=== PATIENT | female | born 1945 | race Caucasian/White ===

== ENCOUNTER 2016-12-14 01:31 | Inpatient (IN) | payer MEDICARE, OTHER ==
[~2016-12-14 01:31] MED LIST: ATIVAN1 M2 PO; BABY ASPIRIN81 MG PO; CALCIUM600 MG PO; CENTRUM SILVER1 TA PO; CO ENZYME Q PO; FISH OIL 1,0001 EAC2 PO; FOLIC ACID PO; GABAPENTIN100 MG PO; HYDROCHLOROTH12.5 M2; METHOTREXATE2.5 MG PO; QUINAPRIL20 MG PO; REMICADE100 MG IV; VITAMIN C500 M3 PO; VITAMIN D1000 UNI1 PO
[2016-12-14 02:09] LABS: BASO % 0.3 % (0-2); EOS % 2.1 % (0-7); EOSINOPHIL ABSOLUTE COUNT 0.1 tho/cmm (0.0-0.7); HCT-HEMATOCRIT 36.4 % (34.0-49.0); IMMATURE GRANULOCYTES ABSOLUTE 0.01 tho/cmm (0-0.03); IMMATURE GRANULOCYTES PERCENT 0.1 % (0-0.3); LYMPH % 35.3 % (20-45); LYMPH ABSOLUTE COUNT 2.4 tho/cmm (0.8-4.5); MCH (MEAN CORPUSCULAR HGB) 31.7 pg (28.0-32.0); MEAN PLATELET VOLUME 10.8 cmc (9.4-12.4); MONO % 7.4 % (0-12); MONOCYTE ABSOLUTE COUNT 0.5 tho/cmm (0.0-1.2); NEUTROPHIL ABSOLUTE COUNT 3.7 tho/cmm (1.6-8.0); NEUTROPHIL-AUTOMATED 3.7 tho/cmm (1.6-8.0); NEUTROPHILS % 54.8 % (40-80); PLATELET COUNT 209 tho/cmm (150-450); PROTHROMBIN TIME 11.2 SECONDS (9.0-13.6); RED BLOOD COUNT 3.79 mil/cmm (4.00-5.20); RED CELL DISTRIBUTION WIDTH 14.8 % (12.4-16.4); WHITE BLOOD COUNT 6.8 tho/cmm (4.0-10.0)
[2016-12-14 02:27] LABS: ALB/GLOB RATIO 0.9 (0.8-2.0); ALBUMIN 3.3 g/dl (3.5-5.0); ALKALINE PHOSPHATASE 99 U/L (33-138); ALT/SGPT 30 U/L (12-78); ANION GAP 16 mmol/L (0-20); AST/SGOT 30 U/L (10-40); BILIRUBIN,TOTAL 0.4 mg/dl (0-1.5); BLOOD UREA NITROGEN 22 mg/dl (6-24); CALCIUM 8.5 mg/dl (8.5-10.5); CARBON DIOXIDE-VENOUS 21 mmol/L (22-32); CHLORIDE 103 mmol/l (96-110); CREATININE 1.12 mg/dl (0.50-1.10); GLUCOSE 326 mg/dL (70-110); POTASSIUM 3.5 mmol/L (3.7-5.1); SODIUM 136 mmol/L (135-145); eGFR VALUE FOR BLACK 56 mL/Min
[2016-12-14 02:32] LABS: TSH-THYROID STIMULATING HORM. 4.64 uIU/ml (0.40-3.80)
[2016-12-14 02:40] LABS: PROCALCITONIN <0.05 ng/ml (0.05-0.09)
[2016-12-14] MEDS ORDERED: FISH OIL 11000 MG/CA PO (04:12)
[2016-12-14] MEDS ORDERED: CALCIUM 600 +1 EA10 PO (04:13)
[2016-12-14] MEDS ORDERED: MULTI VITAMIN1 EAC2 PO (04:13)
[2016-12-14] MEDS ORDERED: FOLIC ACID1 M1 PO (04:14)
[2016-12-14] MEDS ORDERED: IBUPROFEN200 M2 PO (04:15)
[2016-12-14] MEDS ORDERED: VITAMIN B-12 PO (04:16)
[2016-12-14] MEDS ORDERED: ZOLEDRONIC5 MG/100 M IV (04:16)
[2016-12-14] MEDS ORDERED: ZOLOFT PO (04:16)
[2016-12-14] MEDS ORDERED: PROBIOTIC1 EAC6 PO (04:17)
[2016-12-14] MEDS ORDERED: SYNTHROID PO (04:17)
[2016-12-14] MEDS ORDERED: COQ10 PO (04:17)
[2016-12-14] MEDS ORDERED: BIOTIN PO (04:18)
[2016-12-14] MEDS ORDERED: ACID REDUCER PO (04:18)
[2016-12-14] MEDS ORDERED: FLAXSEED OIL1000 M3 PO (04:18)
[2016-12-14] MEDS ORDERED: LOSARTAN PO (04:23)
[2016-12-14] MEDS ORDERED: CLARITIN10 M8 PO (04:24)
[2016-12-14] MEDS ORDERED: NASACORT10.8 M1 (04:24)
[2016-12-14 07:04] LABS: ABG CO2 ARTERIAL 20 mmol/L (21-27); ARTERIAL BLD GAS O2 SATURATION 96 % (95-98); ARTERIAL BLOOD GAS PCO2 34 mmHg (32-45); ARTERIAL PO2 84 mmHg (70-100); BICARBONATE 19 mmol/L (21-28); BLOOD GAS BASE EXCESS -5 mM/L (-/+3); PH 7.36 Units (7.35-7.45)
[2016-12-14 17:51] LABS: URINE APPEARANCE HAZY; URINE BILIRUBIN NEGATIVE (NEG); URINE BLOOD SMALL (NEG); URINE COLOR YELLOW; URINE GLUCOSE (UA) NEGATIVE (NEG); URINE KETONE MODERATE (NEG); URINE LEUKOCYTE ESTERASE NEGATIVE (NEG); URINE NITRITE NEGATIVE (NEG); URINE PROTEIN SMALL (NEG)
[2016-12-14 17:59] LABS: URINE EPITHELIAL CELLS 0 /[HPF] (0-10)
[2016-12-14 18:22] LABS: BASO % 0.2 % (0-2); EOS % 0.2 % (0-7); HCT-HEMATOCRIT 32.4 % (34.0-49.0); HGB-HEMOGLOBIN 10.6 gm/dl (12.0-15.5); LYMPH % 19.6 % (20-45); LYMPH ABSOLUTE COUNT 1.1 tho/cmm (0.8-4.5); MCH (MEAN CORPUSCULAR HGB) 31.6 pg (28.0-32.0); MCHC MEAN CORPUSCULAR HGB CONC 32.7 % (32.0-36.0); MCV (MEAN CELL VOLUME) 96.7 fl (82.0-96.0); MEAN PLATELET VOLUME 10.8 cmc (9.4-12.4); MONO % 8.7 % (0-12); MONOCYTE ABSOLUTE COUNT 0.5 tho/cmm (0.0-1.2); NEUTROPHIL ABSOLUTE COUNT 3.9 tho/cmm (1.6-8.0); NEUTROPHIL-AUTOMATED 3.9 tho/cmm (1.6-8.0); NEUTROPHILS % 71.3 % (40-80); PLATELET COUNT 156 tho/cmm (150-450); RED BLOOD COUNT 3.35 mil/cmm (4.00-5.20); RED CELL DISTRIBUTION WIDTH 15.1 % (12.4-16.4); WHITE BLOOD COUNT 5.4 tho/cmm (4.0-10.0)
[2016-12-14 18:38] LABS: ANTI THROMBIN III 91 % (80-120); INR 1.2 INR (0.9-1.1)
[2016-12-14 18:41] LABS: ALKALINE PHOSPHATASE 91 U/L (33-138); ANION GAP 12 mmol/L (0-20); BILIRUBIN,TOTAL 0.4 mg/dl (0-1.5); BLOOD UREA NITROGEN 14 mg/dl (6-24); CALCIUM 6.9 mg/dl (8.5-10.5); CARBON DIOXIDE-VENOUS 20 mmol/L (22-32); CHLORIDE 114 mmol/l (96-110); CREATININE 0.69 mg/dl (0.50-1.10); POTASSIUM 3.1 mmol/L (3.7-5.1); SODIUM 143 mmol/L (135-145); eGFR VALUE FOR BLACK >90 mL/Min
[2016-12-14 18:43] LABS: PARTIAL THROMBOPLASTIN TIME 30 SECONDS (22-38)
[2016-12-14 18:44] LABS: FIBRINOGEN 48 mg/dl (200-400)
[2016-12-14 18:53] LABS: ALT/SGPT 102 U/L (12-78); AST/SGOT 96 U/L (10-40); GLUCOSE 153 mg/dL (70-110)
[2016-12-15 04:52] LABS: ABG CO2 ARTERIAL 19 mmol/L (21-27); ARTERIAL BLD GAS O2 SATURATION 97 % (95-98); ARTERIAL BLOOD GAS PCO2 33 mmHg (32-45); ARTERIAL PO2 84 mmHg (70-100); BICARBONATE 18 mmol/L (21-28); BLOOD GAS BASE EXCESS -6 mM/L (-/+3); PH 7.36 Units (7.35-7.45)
[2016-12-15 07:08] LABS: BASO % 0.3 % (0-2); EOS % 2.5 % (0-7); EOSINOPHIL ABSOLUTE COUNT 0.2 tho/cmm (0.0-0.7); HCT-HEMATOCRIT 31.6 % (34.0-49.0); HGB-HEMOGLOBIN 10.3 gm/dl (12.0-15.5); IMMATURE GRANULOCYTES ABSOLUTE 0.02 tho/cmm (0-0.03); IMMATURE GRANULOCYTES PERCENT 0.3 % (0-0.3); LYMPH % 26.2 % (20-45); LYMPH ABSOLUTE COUNT 1.8 tho/cmm (0.8-4.5); MCH (MEAN CORPUSCULAR HGB) 31.4 pg (28.0-32.0); MCHC MEAN CORPUSCULAR HGB CONC 32.6 % (32.0-36.0); MCV (MEAN CELL VOLUME) 96.3 fl (82.0-96.0); MEAN PLATELET VOLUME 10.3 cmc (9.4-12.4); MONO % 13.4 % (0-12); MONOCYTE ABSOLUTE COUNT 0.9 tho/cmm (0.0-1.2); NEUTROPHIL ABSOLUTE COUNT 3.9 tho/cmm (1.6-8.0); NEUTROPHIL-AUTOMATED 3.9 tho/cmm (1.6-8.0); NEUTROPHILS % 57.3 % (40-80); PLATELET COUNT 112 tho/cmm (150-450); RED BLOOD COUNT 3.28 mil/cmm (4.00-5.20); RED CELL DISTRIBUTION WIDTH 15.2 % (12.4-16.4); WHITE BLOOD COUNT 6.7 tho/cmm (4.0-10.0)
[2016-12-15 07:42] LABS: ALB/GLOB RATIO 1.1 (0.8-2.0); ALBUMIN 2.8 g/dl (3.5-5.0); ALKALINE PHOSPHATASE 87 U/L (33-138); ALT/SGPT 86 U/L (12-78); ANION GAP 14 mmol/L (0-20); AST/SGOT 66 U/L (10-40); BILIRUBIN,TOTAL 0.3 mg/dl (0-1.5); BLOOD UREA NITROGEN 11 mg/dl (6-24); CALCIUM 6.6 mg/dl (8.5-10.5); CARBON DIOXIDE-VENOUS 19 mmol/L (22-32); CHLORIDE 117 mmol/l (96-110); CREATININE 0.72 mg/dl (0.50-1.10); GLUCOSE 122 mg/dL (70-110); POTASSIUM 3.1 mmol/L (3.7-5.1); SODIUM 147 mmol/L (135-145); eGFR VALUE FOR BLACK >90 mL/Min
[2016-12-15 10:01] LABS: INR 1.2 INR (0.9-1.1); PROTHROMBIN TIME 13.7 SECONDS (9.0-13.6)
[2016-12-16 03:56] LABS: BASO % 0.5 % (0-2); EOS % 4.6 % (0-7); EOSINOPHIL ABSOLUTE COUNT 0.2 tho/cmm (0.0-0.7); HCT-HEMATOCRIT 29.2 % (34.0-49.0); HGB-HEMOGLOBIN 9.5 gm/dl (12.0-15.5); LYMPH % 25.9 % (20-45); MCH (MEAN CORPUSCULAR HGB) 31.6 pg (28.0-32.0); MCHC MEAN CORPUSCULAR HGB CONC 32.5 % (32.0-36.0); MEAN PLATELET VOLUME 10.7 cmc (9.4-12.4); MONO % 11.4 % (0-12); MONOCYTE ABSOLUTE COUNT 0.5 tho/cmm (0.0-1.2); NEUTROPHIL ABSOLUTE COUNT 2.3 tho/cmm (1.6-8.0); NEUTROPHIL-AUTOMATED 2.3 tho/cmm (1.6-8.0); NEUTROPHILS % 57.6 % (40-80); PLATELET COUNT 119 tho/cmm (150-450); RED BLOOD COUNT 3.01 mil/cmm (4.00-5.20); RED CELL DISTRIBUTION WIDTH 15.8 % (12.4-16.4); WHITE BLOOD COUNT 3.9 tho/cmm (4.0-10.0)
[2016-12-16 03:58] LABS: INR 1.1 INR (0.9-1.1); PROTHROMBIN TIME 12.3 SECONDS (9.0-13.6)
[2016-12-16 04:11] LABS: ALB/GLOB RATIO 0.9 (0.8-2.0); ALBUMIN 2.5 g/dl (3.5-5.0); ALKALINE PHOSPHATASE 89 U/L (33-138); ALT/SGPT 72 U/L (12-78); ANION GAP 11 mmol/L (0-20); AST/SGOT 45 U/L (10-40); BILIRUBIN,TOTAL 0.2 mg/dl (0-1.5); BLOOD UREA NITROGEN 7 mg/dl (6-24); CARBON DIOXIDE-VENOUS 22 mmol/L (22-32); CHLORIDE 117 mmol/l (96-110); CREATININE 0.65 mg/dl (0.50-1.10); GLUCOSE 96 mg/dL (70-110); POTASSIUM 3.2 mmol/L (3.7-5.1); SODIUM 147 mmol/L (135-145); eGFR VALUE FOR BLACK >90 mL/Min
[2016-12-16 04:52] LABS: CALCIUM 6.5 mg/dl (8.5-10.5)
[2016-12-16 05:34] LABS: ABG CO2 ARTERIAL 21 mmol/L (21-27); ARTERIAL BLD GAS O2 SATURATION 95 % (95-98); ARTERIAL BLOOD GAS PCO2 35 mmHg (32-45); ARTERIAL PO2 82 mmHg (70-100); BICARBONATE 20 mmol/L (21-28); BLOOD GAS BASE EXCESS -5 mM/L (-/+3); PH 7.37 Units (7.35-7.45)
[2016-12-16 07:23] LABS: PROTHROMBIN TIME 11.8 SECONDS (9.0-13.6)
[2016-12-16 16:01] LABS: ANION GAP 12 mmol/L (0-20); BLOOD UREA NITROGEN 7 mg/dl (6-24); CALCIUM 6.9 mg/dl (8.5-10.5); CARBON DIOXIDE-VENOUS 22 mmol/L (22-32); CHLORIDE 117 mmol/l (96-110); CREATININE 0.88 mg/dl (0.50-1.10); GLUCOSE 120 mg/dL (70-110); SODIUM 146 mmol/L (135-145); eGFR VALUE FOR BLACK 76 mL/Min
[2016-12-16 16:02] LABS: POTASSIUM 5.4 mmol/L (3.7-5.1)
[2016-12-17 04:58] LABS: BASO % 0.2 % (0-2); EOS % 0.3 % (0-7); HCT-HEMATOCRIT 28.4 % (34.0-49.0); HGB-HEMOGLOBIN 9.3 gm/dl (12.0-15.5); IMMATURE GRANULOCYTES ABSOLUTE 0.01 tho/cmm (0-0.03); IMMATURE GRANULOCYTES PERCENT 0.2 % (0-0.3); LYMPH % 13.5 % (20-45); LYMPH ABSOLUTE COUNT 0.9 tho/cmm (0.8-4.5); MCH (MEAN CORPUSCULAR HGB) 31.1 pg (28.0-32.0); MCHC MEAN CORPUSCULAR HGB CONC 32.7 % (32.0-36.0); MEAN PLATELET VOLUME 10.4 cmc (9.4-12.4); MONO % 9.9 % (0-12); MONOCYTE ABSOLUTE COUNT 0.7 tho/cmm (0.0-1.2); NEUTROPHIL ABSOLUTE COUNT 5.1 tho/cmm (1.6-8.0); NEUTROPHIL-AUTOMATED 5.1 tho/cmm (1.6-8.0); NEUTROPHILS % 75.9 % (40-80); PLATELET COUNT 131 tho/cmm (150-450); RED BLOOD COUNT 2.99 mil/cmm (4.00-5.20); RED CELL DISTRIBUTION WIDTH 15.9 % (12.4-16.4)
[2016-12-17 05:03] LABS: WHITE BLOOD COUNT 6.7 tho/cmm (4.0-10.0)
[2016-12-17 05:10] LABS: BLOOD UREA NITROGEN 7 mg/dl (6-24); CARBON DIOXIDE-VENOUS 21 mmol/L (22-32); CHLORIDE 116 mmol/l (96-110); CREATININE 0.71 mg/dl (0.50-1.10); GLUCOSE 146 mg/dL (70-110); MAGNESIUM 1.9 mg/dl (1.3-2.6); SODIUM 145 mmol/L (135-145); eGFR VALUE FOR BLACK >90 mL/Min
[2016-12-17 05:43] LABS: ANION GAP 11 mmol/L (0-20); PHOSPHOROUS 0.9 mg/dl (2.5-4.9); POTASSIUM 3.2 mmol/L (3.7-5.1)
[2016-12-17 17:08] LABS: URINE APPEARANCE CLEAR; URINE BILIRUBIN NEGATIVE (NEG); URINE BLOOD MODERATE (NEG); URINE COLOR YELLOW; URINE GLUCOSE (UA) NEGATIVE (NEG); URINE KETONE MODERATE (NEG); URINE LEUKOCYTE ESTERASE NEGATIVE (NEG); URINE NITRITE NEGATIVE (NEG); URINE PROTEIN SMALL (NEG); URINE SPECIFIC GRAVITY 1.015 (1.003-1.030)
[2016-12-17 17:11] LABS: URINE WBC 0-1 /[HPF] (0-5)
[2016-12-17 17:12] LABS: URINE EPITHELIAL CELLS 0-2 /[HPF] (0-10); URINE RBC 0-2 /[HPF] (0-5)
[2016-12-17 18:37] LABS: BASO % 0.1 % (0-2); EOS % 0.1 % (0-7); HCT-HEMATOCRIT 29.8 % (34.0-49.0); HGB-HEMOGLOBIN 9.8 gm/dl (12.0-15.5); IMMATURE GRANULOCYTES ABSOLUTE 0.03 tho/cmm (0-0.03); IMMATURE GRANULOCYTES PERCENT 0.4 % (0-0.3); LYMPH % 9.2 % (20-45); LYMPH ABSOLUTE COUNT 0.7 tho/cmm (0.8-4.5); MCH (MEAN CORPUSCULAR HGB) 31.3 pg (28.0-32.0); MCHC MEAN CORPUSCULAR HGB CONC 32.9 % (32.0-36.0); MCV (MEAN CELL VOLUME) 95.2 fl (82.0-96.0); MEAN PLATELET VOLUME 10.2 cmc (9.4-12.4); MONO % 7.9 % (0-12); MONOCYTE ABSOLUTE COUNT 0.6 tho/cmm (0.0-1.2); NEUTROPHIL ABSOLUTE COUNT 6.4 tho/cmm (1.6-8.0); NEUTROPHIL-AUTOMATED 6.4 tho/cmm (1.6-8.0); NEUTROPHILS % 82.3 % (40-80); PLATELET COUNT 146 tho/cmm (150-450); RED BLOOD COUNT 3.13 mil/cmm (4.00-5.20); WHITE BLOOD COUNT 7.8 tho/cmm (4.0-10.0)
[2016-12-17 18:38] LABS: INR 1.1 INR (0.9-1.1); PROTHROMBIN TIME 12.7 SECONDS (9.0-13.6)
[2016-12-18 05:48] LABS: BASO % 0.1 % (0-2); EOS % 0.3 % (0-7); HCT-HEMATOCRIT 26.8 % (34.0-49.0); HGB-HEMOGLOBIN 8.9 gm/dl (12.0-15.5); IMMATURE GRANULOCYTES ABSOLUTE 0.01 tho/cmm (0-0.03); IMMATURE GRANULOCYTES PERCENT 0.1 % (0-0.3); LYMPH % 16.7 % (20-45); LYMPH ABSOLUTE COUNT 1.2 tho/cmm (0.8-4.5); MCH (MEAN CORPUSCULAR HGB) 31.4 pg (28.0-32.0); MCHC MEAN CORPUSCULAR HGB CONC 33.2 % (32.0-36.0); MCV (MEAN CELL VOLUME) 94.7 fl (82.0-96.0); MEAN PLATELET VOLUME 10.1 cmc (9.4-12.4); MONO % 9.4 % (0-12); MONOCYTE ABSOLUTE COUNT 0.7 tho/cmm (0.0-1.2); NEUTROPHIL ABSOLUTE COUNT 5.2 tho/cmm (1.6-8.0); NEUTROPHIL-AUTOMATED 5.2 tho/cmm (1.6-8.0); NEUTROPHILS % 73.4 % (40-80); PLATELET COUNT 144 tho/cmm (150-450); RED BLOOD COUNT 2.83 mil/cmm (4.00-5.20); RED CELL DISTRIBUTION WIDTH 15.8 % (12.4-16.4); WHITE BLOOD COUNT 7.1 tho/cmm (4.0-10.0)
[2016-12-18 06:11] LABS: ALBUMIN 2.3 g/dl (3.5-5.0); ALT/SGPT 57 U/L (12-78); ANION GAP 10 mmol/L (0-20); AST/SGOT 47 U/L (10-40); BILIRUBIN,TOTAL 1.2 mg/dl (0-1.5); BLOOD UREA NITROGEN 8 mg/dl (6-24); CALCIUM 7.5 mg/dl (8.5-10.5); CARBON DIOXIDE-VENOUS 26 mmol/L (22-32); CHLORIDE 110 mmol/l (96-110); CREATININE 0.61 mg/dl (0.50-1.10); GLUCOSE 144 mg/dL (70-110); SODIUM 143 mmol/L (135-145); eGFR VALUE FOR BLACK >90 mL/Min
[2016-12-18 06:13] LABS: ALKALINE PHOSPHATASE 92 U/L (33-138); PHOSPHOROUS 1.5 mg/dl (2.5-4.9)
[2016-12-18 07:33] LABS: ALB/GLOB RATIO 0.7 (0.8-2.0)
[2016-12-19 04:19] LABS: ABG CO2 ARTERIAL 28 mmol/L (21-27); ARTERIAL BLD GAS O2 SATURATION 96 % (95-98); ARTERIAL BLOOD GAS PCO2 36 mmHg (32-45); ARTERIAL PO2 74 mmHg (70-100); BICARBONATE 27 mmol/L (21-28); BLOOD GAS BASE EXCESS 3 mM/L (-/+3); PH 7.48 Units (7.35-7.45)
[2016-12-19 05:21] LABS: BASO % 0.3 % (0-2); EOS % 2.1 % (0-7); EOSINOPHIL ABSOLUTE COUNT 0.1 tho/cmm (0.0-0.7); HCT-HEMATOCRIT 28.7 % (34.0-49.0); HGB-HEMOGLOBIN 9.2 gm/dl (12.0-15.5); IMMATURE GRANULOCYTES ABSOLUTE 0.02 tho/cmm (0-0.03); IMMATURE GRANULOCYTES PERCENT 0.3 % (0-0.3); LYMPH % 17.8 % (20-45); LYMPH ABSOLUTE COUNT 1.2 tho/cmm (0.8-4.5); MCH (MEAN CORPUSCULAR HGB) 30.8 pg (28.0-32.0); MCHC MEAN CORPUSCULAR HGB CONC 32.1 % (32.0-36.0); MEAN PLATELET VOLUME 10.5 cmc (9.4-12.4); MONO % 10.7 % (0-12); MONOCYTE ABSOLUTE COUNT 0.7 tho/cmm (0.0-1.2); NEUTROPHIL ABSOLUTE COUNT 4.5 tho/cmm (1.6-8.0); NEUTROPHIL-AUTOMATED 4.5 tho/cmm (1.6-8.0); NEUTROPHILS % 68.8 % (40-80); PLATELET COUNT 198 tho/cmm (150-450); RED BLOOD COUNT 2.99 mil/cmm (4.00-5.20); RED CELL DISTRIBUTION WIDTH 16.1 % (12.4-16.4); WHITE BLOOD COUNT 6.5 tho/cmm (4.0-10.0)
[2016-12-19 05:44] LABS: ALBUMIN 2.3 g/dl (3.5-5.0); ANION GAP 6 mmol/L (0-20); BILIRUBIN,TOTAL 0.8 mg/dl (0-1.5); BLOOD UREA NITROGEN 10 mg/dl (6-24); CARBON DIOXIDE-VENOUS 29 mmol/L (22-32); CHLORIDE 112 mmol/l (96-110); CREATININE 0.67 mg/dl (0.50-1.10); GLUCOSE 123 mg/dL (70-110); MAGNESIUM 2.1 mg/dl (1.3-2.6); PHOSPHOROUS 2.6 mg/dl (2.5-4.9); POTASSIUM 3.2 mmol/L (3.7-5.1); SODIUM 144 mmol/L (135-145); eGFR VALUE FOR BLACK >90 mL/Min
[2016-12-19 05:46] LABS: ALB/GLOB RATIO 0.6 (0.8-2.0); ALKALINE PHOSPHATASE 101 U/L (33-138); ALT/SGPT 78 U/L (12-78)
[2016-12-19 06:22] LABS: AST/SGOT 73 U/L (10-40)
== END 2016-12-19 16:00 | DRG 3 ==
LOC: EDMED 01:31 → EMR2 04:40 → CCU 06:23
PROVIDERS: Emergency Medicine; Hospitalist; Internal Medicine; Internal Medicine Hematology & Oncology; Internal Medicine Pulmonary Disease; Registered Nurse; ADMIT Hospitalist
PROC: 06H03DZ Insertion of Intraluminal Device into Inferior Vena Cava, Percutaneous Approach (ICD-10-PCS; principal; 2016-12-14)
PROC: 05H633Z Insertion of Infusion Device into Left Subclavian Vein, Percutaneous Approach (ICD-10-PCS; 2016-12-14)
PROC: 0BH17EZ Insertion of Endotracheal Airway into Trachea, Via Natural or Artificial Opening (ICD-10-PCS; 2016-12-14)
PROC: B5191ZA Fluoroscopy of Inferior Vena Cava using Low Osmolar Contrast, Guidance (ICD-10-PCS; 2016-12-14)
PROC: 3E04317 Introduction of Other Thrombolytic into Central Vein, Percutaneous Approach (ICD-10-PCS; 2016-12-14)
PROC: 0B110F4 Bypass Trachea to Cutaneous with Tracheostomy Device, Open Approach (ICD-10-PCS; 2016-12-16)
PROC: 5A1955Z Respiratory Ventilation, Greater than 96 Consecutive Hours (ICD-10-PCS; 2016-12-16)
DX: I26.99 Other pulmonary embolism without acute cor pulmonale (principal); I21.4 Non-ST elevation (NSTEMI) myocardial infarction; I82.220 Acute embolism and thrombosis of inferior vena cava; N17.9 Acute kidney failure, unspecified; E87.0 Hyperosmolality and hypernatremia; I95.9 Hypotension, unspecified; T68.XXXA Hypothermia, initial encounter; D62 Acute posthemorrhagic anemia; J96.01 Acute respiratory failure with hypoxia; I82.402 Acute embolism and thrombosis of unspecified deep veins of left lower extremity; I82.4Z1 Acute embolism and thrombosis of unspecified deep veins of right distal lower extremity; I48.91 Unspecified atrial fibrillation; M06.9 Rheumatoid arthritis, unspecified; Z85.41 Personal history of malignant neoplasm of cervix uteri; E87.6 Hypokalemia; R55 Syncope and collapse; W18.12XA Fall from or off toilet with subsequent striking against object, initial encounter; S10.93XA Contusion of unspecified part of neck, initial encounter; M19.90 Unspecified osteoarthritis, unspecified site; M85.80 Other specified disorders of bone density and structure, unspecified site; G89.29 Other chronic pain; E66.01 Morbid (severe) obesity due to excess calories; Z68.35 Body mass index [BMI] 35.0-35.9, adult; Z87.891 Personal history of nicotine dependence; E03.9 Hypothyroidism, unspecified; I87.2 Venous insufficiency (chronic) (peripheral); E55.9 Vitamin D deficiency, unspecified; Z79.82 Long term (current) use of aspirin; F32.9 Major depressive disorder, single episode, unspecified; R73.9 Hyperglycemia, unspecified; E83.51 Hypocalcemia; E87.70 Fluid overload, unspecified
CPT/HCPCS: C1751; C1880; J0282; J0330; J0610; J1644; J1815; J1940; J2250; J2270; J2405; J2704; J2997; J3480; J7030; J7050; P9045; Q9967